=== PATIENT | male | born 1970 | race Caucasian/White ===

== ENCOUNTER 2024-05-20 16:54 | Inpatient (IN) | payer OTHER, SELFPAY ==
[2024-05-20 18:13] VITALS: BMI 22.4
[2024-05-20] MEDS ORDERED: MIDAZOLAM HCL 2 MG/2 ML INJ ONE (18:23)
[2024-05-20] MEDS ORDERED: FENTANYL CITR 100 MCG/2 ML ONE (18:23)
[2024-05-20] MEDS ORDERED: EPHEDRINE SULF 50 MG/ML VIAL ONE (18:24)
[2024-05-20] MEDS ORDERED: propofoL 200 MG/20 ML VIAL IV ONE (18:24)
[2024-05-20] MEDS ORDERED: LIDOCAINE 2% MPF 5 ML VIAL ONE (18:26)
[2024-05-20] MEDS ORDERED: ACETAMINOPHEN 500 MG TAB PO PRN (18:26)
[2024-05-20] MEDS ORDERED: ONDANSETRON 4 MG/2 ML VIAL IV PRN (18:26)
[2024-05-20] MEDS: Ringers Lactate 1,000 ML IV ONE ×2 (18:30→20:35)
[2024-05-20] MEDS: SUCCINYLCHOLINE 20 MG/ML (10 ML) IV ONE (18:30)
[2024-05-20] MEDS: ROCURONIUM 50 MG/5 ML VIAL IV ONE (18:31)
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
[2024-05-20] MEDS ORDERED: ONDANSETRON 4 MG/2 ML VIAL ONE (19:31)
[2024-05-20] MEDS ORDERED: METOCLOPRAMIDE 10 MG/2mL INJ ONE (19:31)
[2024-05-20] MEDS ORDERED: GLYCOPYRROLATE 0.2 MG/ML SYR ONE ×3 (19:34)
[2024-05-20] MEDS ORDERED: NEOSTIGMINE 1 MG/ML -10 ML VIAL ONE (19:34)
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
--- NOTE | 2024-05-20 20:30 | P.BOP ---
Preoperative diagnosis: small bowel obstruction, strangulated umbilical hernia, peritonitis, renal Postoperative diagnosis: gangrenous strangulated small bowel Primary procedure: 1. Emergent exploratory laparotomy, 2.Small bowel resection / anastomosis Secondary procedure: 3. Repair of strangulated umbilical hernia 5cm Estimated blood loss: <50cc Specimen: gangrenous strangulated small bowel Findings: gangrenous strangulated small bowel Anesthesia: General Complications: None Drain(s): Nasogastric, Urinary catheter, VANNA drain Transferred to: Recovery Room Condition: Good
[2024-05-20] MEDS: FENTANYL CITR 100 MCG/2 ML ONE ×2 (21:05→21:30)
--- NOTE | 2024-05-20 21:20 | RAD REPORT ---
EXAM: AP view(s) of the abdomen Abdomen 1 View (KUB) HISTORY: NGT PLACEMENT COMPARISON: None FINDINGS: Limited, single view of the left upper quadrant. The NG tube tip terminates overlying the stomach. Th e proximal side port terminates overlying the distal esophagus. Dilated small bowel bowel present in the left upper quadrant. Other: n/a IMPRESSION: NG tube tip overlies the stomach with proximal side-port at the distal esophagus. Suggest advancing by another 8 cm. THIS REPORT CONTAINS FINDINGS THAT MAY BE CRITICAL TO PATIENT CARE. The findings were communicated to Dr. Womack on 05/20/2024 9:17 PM.
[2024-05-20] MEDS: HYDROMORPHONE HCL 1 MG/ML INJ ONE (21:45)
[2024-05-20] MEDS: PANTOPRAZOLE INJ 80 MG in NA CHLORIDE 0.9% 250 ML IV SCH (23:04)
[2024-05-20] MEDS: HYDROMORPHONE HCL 1 MG/ML INJ IV PRN (23:05)
[2024-05-20 23:34] LABS: Absolute Lymphocytes (CBC) 0.8 K/uL (0.7-4.9); Absolute Monocytes 0.3 K/uL (0.1-1.3); Absolute Neutrophil 3.1 K/uL (1.8-8.0); Basophils % 0.2 % (0-1.3); Eosinophils % 0.1 % (0-4.4); Hematocrit 42.3 % (39.6-49.0); Hemoglobin 14.7 g/dL (13.6-17.9); Lymphocytes % 19.2 % (15.3-44.8); MCH 29.5 pg (27.0-35.0); MCHC 34.9 g/dL (32.0-36.0); MCV 84.6 fL (80-100); MPV 9.5 fL (7.6-11.3); Monocytes % 6.9 % (3.3-12.3); Neutrophils % 73.6 % (41.7-73.7); Nucleated Red Blood Cells % 0.1 % (0-0); Percent Reticulocyte Count 0.88 % (0.4-2.05); Platelets 309 thou/uL (152-406); RBC Red Blood Cell Count 4.99 M/uL (4.33-5.43); Red Cell Distribution Width 14.2 % (12.1-15.2)
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
[2024-05-20 23:49] LABS: Albumin 2.4 g/dL (3.4-5.0); Albumin/Globulin Ratio 0.7 (1.1-1.8); Anion Gap 15.5 mEq/L (5.0-15.0); Bilirubin Total 2.1 mg/dL (0.2-1.0); Globulin 3.6 g/dL (2.3-3.5); Magnesium 2.2 mg/dL (1.6-2.4); Phosphorus 5.5 mg/dL (2.5-4.9); Potassium 3.5 mEq/L (3.5-5.1)
[2024-05-20 23:56] LABS: PT Prothrombin Time 12.2 SECONDS (9.4-12.5); PTT, Activated Partial Thromb 24.1 SECONDS (24.3-36.9); Protime INR 1.16
[2024-05-21] MEDS: PIPER TAZO 3.375 GM in NA CHLORIDE 0.9% 100 ML IV SCH (01:59)
[2024-05-21] MEDS: NA CHLORIDE 0.9% 1,000 ML IV SCH ×2 (01:59→14:43)
[2024-05-21 06:12] LABS: Absolute Lymphocytes (CBC) 0.8 K/uL (0.7-4.9); Absolute Monocytes 1.1 K/uL (0.1-1.3); Absolute Neutrophil 8.2 K/uL (1.8-8.0); Basophils % 0.1 % (0-1.3); Eosinophils % 0.1 % (0-4.4); Hemoglobin 14.2 g/dL (13.6-17.9); Lymphocytes % 7.8 % (15.3-44.8); MCH 29.4 pg (27.0-35.0); MCHC 35.4 g/dL (32.0-36.0); MCV 83.2 fL (80-100); MPV 9.1 fL (7.6-11.3); Monocytes % 10.6 % (3.3-12.3); Neutrophils % 81.4 % (41.7-73.7); Platelets 309 thou/uL (152-406); RBC Red Blood Cell Count 4.81 M/uL (4.33-5.43); Red Cell Distribution Width 13.9 % (12.1-15.2)
[2024-05-21 06:31] LABS: Albumin 2.4 g/dL (3.4-5.0); Albumin/Globulin Ratio 0.7 (1.1-1.8); Anion Gap 13.7 mEq/L (5.0-15.0); Bilirubin Total 2.8 mg/dL (0.2-1.0); Globulin 3.6 g/dL (2.3-3.5); Potassium 3.7 mEq/L (3.5-5.1)
[2024-05-21 06:35] LABS: PT Prothrombin Time 12.2 SECONDS (9.4-12.5); PTT, Activated Partial Thromb 22.9 SECONDS (24.3-36.9); Protime INR 1.16
[2024-05-21] MEDS ORDERED: PIPER TAZO 3.375 GM in NA CHLORIDE 0.9% 100 ML IV SCH ×2 (09:00→18:33)
[2024-05-21] MEDS: PANTOPRAZOLE INJ 80 MG in NA CHLORIDE 0.9% 250 ML IV SCH (09:30)
--- NOTE | 2024-05-21 14:14 | P.PN ---
Subjective Date of Service: 05/21/24 Subjective: No new changes, Improving Review of Systems 10-point ROS is otherwise unremarkable Physical Examination - Vital Signs Temperature: 97.3 F Blood Pressure: 137/83 Pulse: 89 Respirations: 13 Pulse Ox (%): 98 - Physical Exam General: Alert, In no apparent distress, Oriented x3 HEENT: Other (NG tube in place) Respiratory: Clear to auscultation bilaterally, Normal air movement Cardiovascular: Regular rate/rhythm, Normal S1 S2, No murmurs Gastrointestinal: Hypoactive, No rebound, No guarding, Tenderness Musculoskeletal: No clubbing, No swelling, No tenderness Integumentary: No rashes Neurological: Normal speech, Normal tone, Sensation intact, Cranial nerves 3-12 intact Lymphatics: No axilla or inguinal lymphadenopathy - Studies Laboratory Data (last 24 hrs) 05/21/24 05/21/24 05/21/24 05:49 05:49 05:49 WBC 10.00 Hgb 14.2 Hct 40.0 Plt Count 309 PT 12.2 INR 1.16 APTT 22.9 L Sodium 127 L Potassium 3.7 BUN 105 H Creatinine 2.24 H Glucose 114 H Phosphorus Magnesium Total Bilirubin 2.8 H AST 25 ALT 30 Alkaline Phosphatase 76 05/20/24 05/20/24 05/20/24 22:55 22:55 22:55 WBC 4.20 L Hgb 14.7 Hct 42.3 Plt Count 309 PT 12.2 INR 1.16 APTT 24.1 L Sodium 127 L Potassium 3.5 BUN 117 H Creatinine 2.48 H Glucose 133 H Phosphorus 5.5 H Magnesium 2.2 Total Bilirubin 2.1 H AST 21 ALT 32 Alkaline Phosphatase 73 Medications List Reviewed: Yes Assessment & Plan - Problems (Diagnosis) (1) Strangulated umbilical hernia Current Visit: Yes Status: Acute (2) Peritonitis Current Visit: Yes Status: Acute (3) JUAN ANTONIO (acute kidney injury) Current Visit: Yes Status: Acute (4) Lactic acidosis Current Visit: Yes Status: Acute (5) Severe sepsis Current Visit: Yes Status: Acute - Plan Plan: Continue with plan of care as mentioned below: 1. Patient with strangulated umbilical hernia with peritonitis status post small bowel resection with anastomosis; NG tube is in place. Aggressive IV hydration. Continue with IV antibiotics. Cultures are pending. Patient with severe sepsis and clinical symptoms have improved. Labs are improving. Will downgrade to general medical floor. 2. Acute kidney injury; aggressive IV hydration. Monitor renal function closely. Mild improvement. Strict I's and O's. Monitor acidosis 3. Lactic acidosis; continue with aggressive IV hydration and repeat lactic acid monitor daily. 4. GI DVT prophylaxis Discharge Plan: Home Plan to discharge in: Greater than 2 days - Advance Directives Does patient have a Living Will: No Does patient have a Durable POA for Healthcare: No - Code Status/Comfort Care Code Status: Full Code Critical Care: Yes Time Spent Managing PTS Care (In Minutes): 35
--- NOTE | 2024-05-21 17:32 | PN ---
Date of Progress Note: 05/21/2024 Subjective: Status post laparotomy emergently for bowel resection due to gangrenous bowel. Anastomo sis was created at that moment. The patient also has some other medical issues that were addressed a t the same time. He is doing great. He has allergies to aspirin and codeine, but not hydrocodone or Dilaudid. He has not had any reaction or any rash or any allergy reaction to those medications. Objective: Vital Signs: Stable with temperature of 97.3, pulse is between 86 and 89, respiration 13 , and blood pressure 137/83. Chest: Clear. Abdomen: Soft and depressible. Bowel sounds negative. Extremities: Good capillary refill. No calf tenderness. Lab: WBC count is 10, with hemoglobin of 14 and platelets of 309. His creatinine coming down from 2 .84 to 2.2. Lactic acid was initially 4.9, now is 2. Glucose 114. Sodium is still 127. Chloride i s 90. Plan: We going to continue NG tube. He does not want me to touch the NG tube. We are going to adva nce it a little bit, it is bothering him too much, so we are going to put on low intermittent suction . We might remove the NG tube anyway tomorrow. We encouraged ambulation. He wants some water. We are going to give him some sips of water. He understands the importance of not exceeding that. Cont inue the antibiotics. HM/MODL Voice ID: [id number] Report ID: [id number]
[2024-05-21] MEDS: Ringers Lactate 1,000 ML IV ONE ×2 (17:42→18:35)
--- NOTE | 2024-05-21 22:47 | CON ---
Date of Consultation: 05/21/2024 Additional Consulting Physician: Dr. Thornton. Reason For Consultation: Elevated BUN and creatinine, electrolyte imbalance. History Of Present Illness: This is a 54-year-old gentleman with negative past medical history, who was admitted to the hospital with strangulated hernia, went to Surgery, and surgery was done. The pa tyler apparently had abdominal pain, has decreased intake with nausea and vomiting for the last 2 wee ks. The patient is questionable of taking nonsteroid. The patient upon arrival to the hospital foun d to have elevation in BUN and creatinine, creatinine 2.4 with GFR of 30. For that reason, we have b vicente consulted. The patient as I mentioned, possible of taking nonsteroid, no IV contrast. CT in the other hospital did not show any hydronephrosis. The patient is nonoliguric. The patient was starte d on hydration. Past Medical History: Negative. Allergies: TO ASPIRIN, CODEINE. Past Surgical History: Negative. Family History: Positive for hypertension. Social History: Denied alcohol. Denied drugs abuse. Positive for smoking. Review of Systems: Head and Neck: No red eye. No ear pain. GI: Has abdominal pain. Has nausea, vomiting. : No polyuria. No dysuria. No hematuria. APPLICATION PROGRAMMER ANALYST: Not applicable. Respiratory: No shortness of breath. Cardiovascular: No chest pain. Endocrine: No polydipsia. Skin: No rash. Neuro: Has weakness. Musculoskeletal: No joint pain. Physical Examination: General: When I saw the patient, the patient lying in bed with pain. Vital Signs: Blood pressure 144/75, pulse of 91. Chest: Clear to auscultation. Heart: S1, S2. Regular. Abdomen: Tender. No guarding or rebound. Extremities: No edema. Neurologic: Alert. No focality. Laboratory Data: Sodium 127, potassium 3.7, bicarb 27, BUN 105, creatinine 2.2, calcium 7.4. CT neg ative for hydronephrosis. Albumin 2.4, corrected calcium is 8.6. Current Medications: 1.Zosyn. 2.Zofran. 3.Normal saline. Assessment And Plan: 1.Acute kidney injury secondary to prerenal, superimposed with nonsteroid, nonoliguric obstructive u ropathy has been ruled out. I am going to go ahead and bolus the patient with LR. Maintain the john ent on IV fluid and we will follow up the patient. 2.Hyponatremia, depletional. We will continue aggressive hydration. 3.Hypokalemia. We will supplement cautiously. 4.Strangulated hernia. Continue current treatment. 5.Disproportion of BUN and creatinine secondary to severe contraction alkalosis/possible secondary t o the ischemic bowel. We will follow up with the hydration. ABRAHAM/BRAN Voice ID: [id number] Report ID: [id number]
[2024-05-22 05:01] LABS: Absolute Monocytes 0.8 K/uL (0.1-1.3); Absolute Neutrophil 7.3 K/uL (1.8-8.0); Basophils % 0.3 % (0-1.3); Eosinophils % 0.2 % (0-4.4); Hematocrit 36.5 % (39.6-49.0); Hemoglobin 12.3 g/dL (13.6-17.9); Lymphocytes % 10.7 % (15.3-44.8); MCH 28.7 pg (27.0-35.0); MCHC 33.6 g/dL (32.0-36.0); MCV 85.2 fL (80-100); MPV 9.1 fL (7.6-11.3); Monocytes % 8.9 % (3.3-12.3); Neutrophils % 79.9 % (41.7-73.7); Nucleated Red Blood Cells % 0.1 % (0-0); Platelets 252 thou/uL (152-406); RBC Red Blood Cell Count 4.29 M/uL (4.33-5.43); Red Cell Distribution Width 14.4 % (12.1-15.2)
[2024-05-22 05:23] LABS: Albumin 2.2 g/dL (3.4-5.0); Albumin/Globulin Ratio 0.6 (1.1-1.8); Anion Gap 7.5 mEq/L (5.0-15.0); Bilirubin Total 1.2 mg/dL (0.2-1.0); Globulin 3.6 g/dL (2.3-3.5); Magnesium 3.1 mg/dL (1.6-2.4); Potassium 3.5 mEq/L (3.5-5.1); Protein, Total 5.8 g/dL (6.4-8.2)
[2024-05-22 05:29] LABS: Band Neutrophils 37 % (0-1); Blood Morphology Comment NOT SEEN (NOT SEEN); Differential Total Cells Count 100; Lymphocytes 10 % (15-42); Monocytes 8 % (0-10); Platelet Estimate ADEQ; Reactive Lymphocytes 1 %; Segmented Neutrophils 44 % (40-80)
[2024-05-22] MEDS: D5 0.45 NS 1,000 ML IV SCH (10:34)
[2024-05-22] MEDS: KCL 20 MEQ/100 mL IVPB 20 MEQ/100 ML BAG IV SCH (10:34)
[2024-05-22] MEDS: FUROSEMIDE 40 MG/4 ML VIAL IV ONE (15:14)
[2024-05-22] MEDS: NA CHLORIDE 0.9% 1,000 ML IV ONE (15:14)
[2024-05-22] MEDS: ENOXAPARIN 40 MG/0.4 ML SQ SCH (16:38)
--- NOTE | 2024-05-22 17:20 | PN ---
Date of Progress Note: 05/22/2024 Diagnosis: Pranay Newsome is status post bowel resection emergently for strangulated intestines. Subjective: The patient is doing well. Not passing any flatus yet. NG tube is minimal. VANNA is mini mal. Objective: Chest: Clear. Abdomen: Soft and depressible. Bowel sounds negative. Extremities: Good capillary refill. Data: Blood work review with WBC count of 9, hemoglobin of 12.3, and platelets of 252. His creatini ne came down to 0.9, glucose of 101, BUN is 44, and potassium 3.5. Assessment: A 54-year-old patient status post strangulated intestine, status post bowel resection an d anastomosis. The patient is doing well. He is going to be transferred to the floor tomorrow. We may clamp the NG tube and discharge on clear liquid diet if clinically he continues improving. HM/MODL Voice ID: [id number] Report ID: [id number]
[2024-05-23 06:21] LABS: Absolute Eosinophils 0.1 K/uL (0-0.5); Absolute Lymphocytes (CBC) 1.2 K/uL (0.7-4.9); Absolute Monocytes 1.2 K/uL (0.1-1.3); Absolute Neutrophil 10.5 K/uL (1.8-8.0); Basophils % 0.2 % (0-1.3); Eosinophils % 0.6 % (0-4.4); Hematocrit 33.5 % (39.6-49.0); Hemoglobin 11.2 g/dL (13.6-17.9); Lymphocytes % 9.4 % (15.3-44.8); MCHC 33.5 g/dL (32.0-36.0); MCV 86.4 fL (80-100); MPV 9.3 fL (7.6-11.3); Monocytes % 9.5 % (3.3-12.3); Neutrophils % 80.3 % (41.7-73.7); Platelets 267 thou/uL (152-406); RBC Red Blood Cell Count 3.87 M/uL (4.33-5.43); Red Cell Distribution Width 14.5 % (12.1-15.2)
[2024-05-23 06:52] LABS: Magnesium 2.6 mg/dL (1.6-2.4)
[2024-05-23] MEDS: POTASSIUM 25 MEQ EFFERV TAB PO ONE (07:49)
[2024-05-23] MEDS: KCL 20 MEQ/100 mL IVPB 20 MEQ/100 ML BAG IV SCH (09:00)
[2024-05-23 11:14] LABS: Specific Gravity 1.024 (1.005-1.030); Sqamous Epithelial <5 /HPF (None Seen); Urine Bacteria None Seen /HPF (<20); Urine Bilirubin NEGATIVE (Negative); Urine Blood 1+ (Negative); Urine Clarity Turbid (Clear); Urine Color Yellow (Yellow); Urine Culture Reflex Order NOT NEEDED; Urine Glucose TRACE (Negative); Urine Ketones NEGATIVE (Negative); Urine Microscopic Reflex YN ORDER UMIC; Urine Mucus Slight /HPF (None Seen); Urine Nitrite NEGATIVE (Negative); Urine Protein 1+ (Negative); Urine RBC 21-50 /HPF (None Seen); Urine Urobilinogen Normal (Normal); Urine WBC <5 /HPF (<5)
[2024-05-23] MEDS ORDERED: SODIUM CHLORIDE 0.9% 10ML INJ IV PRN (12:51)
[2024-05-23] MEDS ORDERED: PANTOPRAZOLE INJ 80 MG in NA CHLORIDE 0.9% 250 ML IV SCH (13:30)
--- NOTE | 2024-05-23 19:49 | PN ---
Date of Progress Note: 05/23/2024 Reason For Service: Status post bowel resection and anastomosis, exploratory laparotomy. Subjective: The patient is doing well. No complaint. No nausea. No vomiting. Passing flatus. NG tube is minimal. Objective: Chest: Clear. Abdomen: Soft and depressible. Packing removed. The area was not repacked anymore. We put a gauze over the area. This is a midline incision. Extremities: Good capillary refill. Blood Work: Blood work shows WBC count of 13.1 with hemoglobin 11.2 and platelets of 267. Sodium is 141, creatinine is 0.88. Plan: We are going to discontinue the NG tube. Ambulation, dry gauze p.r.n. to the abdomen and we a re going to start with clears. YESENIA/MODL Voice ID: [id number] Report ID: [id number]
[2024-05-23] MEDS: THIAMINE 200 MG/2 ML INJ IVP ONE (23:23)
[2024-05-23] MEDS: D5W 1,000 ML IV SCH (23:23)
--- NOTE | 2024-05-24 04:19 | PN ---
Date of Progress Note: 05/23/2024 Chief Complaint: Elevated BUN and creatinine, electrolyte imbalance. Subjective: The patient is a 54-year-old man with negative past medical history. He denies history of diabetes. Denies history of hypertension. He came to the hospital because of abdominal pain and was evaluated by Surgery. He had a strangulated hernia and schedule was done for strangulated hernia . The patient denies complaints. The patient on arrival to the hospital was found to have elevated BUN and creatinine. BUN was 36, creatinine 2.4, GFR of 30. Nephrology consultation is requested for acute kidney injury. CT scan done in other hospital did not show hydronephrosis. The patient has n onoliguric urine output. He was started on IV fluids for acute kidney injury. Review of Systems: Cannot provide review of systems. Denies pain. Physical Examination: Lungs: Clear to auscultation bilaterally. Heart: S1, S2. Abdomen: Soft. Extremities: No edema. Impression And Plan: 1.Acute kidney injury secondary to prerenal azotemia, superimposed with nonsteroidal anti-inflammato ry medication. The patient has nonoliguric urine output. Obstructive uropathy was ruled out. Shadi nue IV fluids for hydration. 2.Hyponatremia. The patient's fluids were adjusted to prevent over-correction and to adjust IV flui ds for gradual correction of hyponatremia. 3.Hypokalemia. Supplementation was started. Monitor renal panel. 4.Elevated high BUN/creatinine ratio secondary to severe acute kidney injury. BUN is 105 on arrival and creatinine 2.2. The patient is on IV fluids and plan is to evaluate renal function. If renal f unction does not improve, the patient may require dialysis. 5.Severe contraction alkalosis, possible due to hypovolemia. Continue hydration. EB/MODL Voice ID: [id number] Report ID: [id number]
[2024-05-24] MEDS: CEFEPIME 2 GM in NA CHLORIDE 0.9% 100 ML IV SCH (05:09)
[2024-05-24 06:22] LABS: Albumin 2.1 g/dL (3.4-5.0); Albumin/Globulin Ratio 0.5 (1.1-1.8); Anion Gap 7.5 mEq/L (5.0-15.0); Bilirubin Total 0.6 mg/dL (0.2-1.0); Globulin 3.9 g/dL (2.3-3.5); Magnesium 2.3 mg/dL (1.6-2.4); Phosphorus 1.6 mg/dL (2.5-4.9); Potassium 3.5 mEq/L (3.5-5.1)
[2024-05-24] MEDS: THIAMINE 200 MG/2 ML INJ IVP SCH (09:33)
[2024-05-24] MEDS: PANTOPRAZOLE 40 MG INJ IVP SCH (09:33)
--- NOTE | 2024-05-24 12:46 | PN ---
Date of Progress Note: 05/24/2024 Reason For Service: Status post bowel resection for strangulated bowel. Subjective: The patient is doing well. No complaint. Passing flatus, having bowel movement. Still liquid diet. No shortness of breath. No chest pain. No fever. Objective: Chest: Clear. Abdomen: Soft and depressible. Intact surgical site. Extremities: Good capillary refill. Plan: Advance diet. We are going to advance to full liquid diet and advance to soft diet as tolerat ed whenever he can tolerate diet. If clinically he continues improving, then he may be discharged ho az. His renal function has seen some improvement on it. HM/MODL Voice ID: [id number] Report ID: [id number]
[2024-05-24 18:13] LABS: Absolute Basophils 0.1 K/uL (0-0.5); Absolute Eosinophils 0.1 K/uL (0-0.5); Absolute Lymphocytes (CBC) 3.1 K/uL (0.7-4.9); Absolute Monocytes 1.2 K/uL (0.1-1.3); Absolute Neutrophil 8.4 K/uL (1.8-8.0); Basophils % 0.5 % (0-1.3); Hematocrit 35.7 % (39.6-49.0); Hemoglobin 11.9 g/dL (13.6-17.9); Lymphocytes % 23.9 % (15.3-44.8); MCHC 33.2 g/dL (32.0-36.0); MCV 87.3 fL (80-100); Monocytes % 9.3 % (3.3-12.3); Neutrophils % 65.3 % (41.7-73.7); Nucleated Red Blood Cells % 0.1 % (0-0); Platelets 321 thou/uL (152-406); RBC Red Blood Cell Count 4.09 M/uL (4.33-5.43)
[2024-05-24 20:34] LABS: Differential Total Cells Count 100; Lymphocytes 34 % (15-42); Segmented Neutrophils 46 % (40-80)
[2024-05-24 20:35] LABS: Blood Morphology Comment NOT SEEN (NOT SEEN); Platelet Estimate ADEQ
[2024-05-24 20:36] LABS: Monocytes 20 % (0-10)
--- NOTE | 2024-05-25 00:14 | PN ---
Date of Progress Note: 05/24/2024 Chief Complaint: Acute kidney injury. History Of Present Illness: The patient is a 54-year-old with negative past medical history. He den ies history of diabetes, denies hypertension. He came to the hospital because of abdominal pain and was evaluated by Surgery. He has strangulated hernia and was scheduled to have a surgery. Underwent surgery during this admission. The patient was found to have elevated BUN of 36 and creatinine of 2 .4. Nephrology consultation was requested for acute kidney injury. CT scan was done at the hospital and did not show hydronephrosis. Patient responded to IV fluids. He has nonoliguric urine output. Review of Systems: Denies chest pain, palpitation. Physical Examination: Lungs: Clear to auscultation bilaterally. Heart: S1, S2. Abdomen: Soft. Extremities: No edema. Impression And Plan: 1.Acute kidney injury secondary to prerenal azotemia superimposed with nonsteroidal anti-inflammator y medication. Patient has nonoliguric urine output and obstructive uropathy was ruled out. Continue IV fluids as needed. The patient tolerated p.o. intake. 2.Hyponatremia. The patient's fluids were adjusted to prevent overcorrection and IV fluids were adj usted for gradual correction hyponatremia. 3.Hypokalemia. Supplementation was started. Monitor renal panel. 4.Elevated BUN creatinine ratio secondary to severe acute kidney injury. BUN was 105, creatinine 2. 2. The patient is on IV fluids. Continue to monitor. 5.Severe contraction alkalosis due to hypovolemia. Continue hydration. EB/MODL Voice ID: [id number] Report ID: [id number]
[2024-05-25] MEDS: D5W 1,000 ML IV SCH (01:05)
[2024-05-25 06:19] LABS: Absolute Basophils 0.1 K/uL (0-0.5); Absolute Eosinophils 0.2 K/uL (0-0.5); Absolute Lymphocytes (CBC) 2.6 K/uL (0.7-4.9); Absolute Monocytes 1.6 K/uL (0.1-1.3); Absolute Neutrophil 10.1 K/uL (1.8-8.0); Basophils % 0.5 % (0-1.3); Eosinophils % 1.5 % (0-4.4); Hematocrit 35.5 % (39.6-49.0); Hemoglobin 11.9 g/dL (13.6-17.9); Lymphocytes % 17.7 % (15.3-44.8); MCH 28.5 pg (27.0-35.0); MCHC 33.5 g/dL (32.0-36.0); MPV 9.4 fL (7.6-11.3); Monocytes % 11.2 % (3.3-12.3); Neutrophils % 69.1 % (41.7-73.7); Platelets 329 thou/uL (152-406); RBC Red Blood Cell Count 4.18 M/uL (4.33-5.43); Red Cell Distribution Width 14.8 % (12.1-15.2)
[2024-05-25 06:36] LABS: Albumin 1.8 g/dL (3.4-5.0); Albumin/Globulin Ratio 0.5 (1.1-1.8); Anion Gap 9.2 mEq/L (5.0-15.0); Bilirubin Total 0.6 mg/dL (0.2-1.0); Globulin 3.7 g/dL (2.3-3.5); Magnesium 1.8 mg/dL (1.6-2.4); Phosphorus 2.3 mg/dL (2.5-4.9); Potassium 3.2 mEq/L (3.5-5.1); Protein, Total 5.5 g/dL (6.4-8.2)
[2024-05-25] MEDS: POTASSIUM CL SA 10 MEQ TAB PO ONE (09:00)
[2024-05-25] MEDS: POTASS/SODIUM PHOSPHATE 1 PKT POWD.PACK PO SCH (09:55)
[2024-05-25] MEDS: MAGNESIUM SULFATE 1 gm IVPB 1 GM/100 ML BAG IV ONE (09:56)
[2024-05-25] MEDS: FUROSEMIDE 20 MG/ 2ML VIAL IV ONE (13:52)
[2024-05-25] MEDS: ALBUMIN HUMAN 25% 100 ML IV ONE (13:52)
[2024-05-25] MEDS: ENSURE COMPACT 118 ML LIQUID PO SCH (16:30)
--- NOTE | 2024-05-25 20:50 | PN ---
Date of Progress Note: 05/25/2024 Chief Complaint: Acute kidney injury. History Of Present Illness: The patient is a 54-year-old man with negative past medical history. He denies history of diabetes, denies hypertension. Denies previous history of prostate problems, kidney stones, and urinary tract infection. He came to the hospital because of abdominal pain and was evaluated by Surgery. He was found to have strangulated hernia and was scheduled to have surgery. Underwent surgery during this admission. He was found to have acute kidney injury. His BUN was 36, creatinine 2.4. Nephrology consultation was requested for acute kidney injury. CT scan was done at the hospital and it did not show obstructive uropathy. The patient responded to IV fluids. IV fluids were adjusted to control hyponatremia and patient is currently off IV fluids. He received 1 dose of Lasix for mild fluid overload. He denies PND, orthopnea. Physical Examination: Lungs: Clear to auscultation bilaterally. Heart: S1, S2. Abdomen: Soft. Extremities: No edema. Impression And Plan: 1. Acute kidney injury secondary to prerenal azotemia, nonoliguric acute tubular necrosis, superimposed with nonsteroidal anti-inflammatory medication. We will continue p.o. hydration. He completed IV fluids. He received IV Lasix for mild volume overload. 2. Hyponatremia. IV fluids were adjusted to prevent overcorrection and patient responded to current regimen. 3. Hypokalemia. Supplementation was added. Monitor renal panel. Add magnesium and phosphorus. 4. Elevated BUN and creatinine ratio secondary to acute kidney injury. BUN was 105, creatinine 2.2. The patient responded to IV fluids. 5. Severe contraction alkalosis due to hypovolemia. Continue p.o. hydration. Electrolytes stabilized and renal function has improved in response to IV fluids. The patient will continue p.o. hydration. EB/MODL Voice ID: [id number] Report ID: [id number] DAVONTE
--- NOTE | 2024-05-25 21:47 | PN ---
Date of Progress Note: 05/25/2024 Subjective: Status post strangulated intestines. bowel was resected and primary anastomosis to an emergent laparotomy. The patient is doing better. He is more active, more talkative, tolerating a full liquid diet. Objective: Chest: Clear. Abdomen: Soft and depressible. Intact surgical site. Bowel sounds positive. Extremities: Good capillary refill. No calf tenderness. Laboratory Data: WBC count is climbing up a little bit. He is on antibiotics. We did not see at this moment any specific area. VANNA from inside the abdomen l ooks clear. Plan: We are going to do WBC tomorrow, ambulation, incentive spirometry. We are going to advance di et since he is hungry and is tolerating the diet, passing flatus. HM/MODL Voice ID: [id number] Report ID: [id number]
[2024-05-26] MEDS: NA CHLORIDE 0.9% 1,000 ML IV SCH (05:47)
[2024-05-26 06:45] LABS: Absolute Basophils 0.1 K/uL (0-0.5); Absolute Eosinophils 0.2 K/uL (0-0.5); Absolute Lymphocytes (CBC) 2.7 K/uL (0.7-4.9); Absolute Monocytes 1.9 K/uL (0.1-1.3); Absolute Neutrophil 11.3 K/uL (1.8-8.0); Basophils % 0.5 % (0-1.3); Eosinophils % 1.2 % (0-4.4); Hematocrit 34.9 % (39.6-49.0); Hemoglobin 11.8 g/dL (13.6-17.9); Lymphocytes % 16.8 % (15.3-44.8); MCHC 33.8 g/dL (32.0-36.0); MCV 85.9 fL (80-100); MPV 8.8 fL (7.6-11.3); Monocytes % 11.8 % (3.3-12.3); Neutrophils % 69.7 % (41.7-73.7); Nucleated Red Blood Cells % 0.1 % (0-0); Platelets 363 thou/uL (152-406); RBC Red Blood Cell Count 4.06 M/uL (4.33-5.43); Red Cell Distribution Width 14.9 % (12.1-15.2)
[2024-05-26 07:01] LABS: Albumin 2.2 g/dL (3.4-5.0); Albumin/Globulin Ratio 0.6 (1.1-1.8); Anion Gap 6.5 mEq/L (5.0-15.0); Bilirubin Total 0.8 mg/dL (0.2-1.0); Globulin 3.4 g/dL (2.3-3.5); Phosphorus 3.5 mg/dL (2.5-4.9); Potassium 3.5 mEq/L (3.5-5.1); Protein, Total 5.6 g/dL (6.4-8.2)
[2024-05-26 08:17] LABS: Blood Morphology Comment NOT SEEN (NOT SEEN); Differential Total Cells Count 100; Platelet Estimate ADEQ; Platelets Clumped NOTED; Platelets, Giant RARE
[2024-05-26 08:18] LABS: Atypical Lymphocytes 1 %; Eosinophils 1 % (0-3); Lymphocytes 20 % (15-42); Metamyelocytes 3 % (0-0); Monocytes 9 % (0-10); Segmented Neutrophils 63 % (40-80); White Blood Cell Scan OK (OK)
--- NOTE | 2024-05-26 09:36 | P.PN ---
Date of Service: 05/25/24 Subjective Patient clinically doing better. He is tolerating his diet. He has had a bowel movement. He denies any new complaints. We have stopped his IV fluids and we have gently diuresed him. His white blood cell count has gone up a little bit. Clinically, he does look like he is doing much better. He is wanting to go home but at this time since his white count is at work and I will hold his discharge and reassess it in the morning. Possible DC in a.m. Physical Examination - Vital Signs Reviewed - Physical Exam General: Alert, In no apparent distress, Oriented x3 HEENT: WNL Respiratory: Clear to auscultation bilaterally, Normal air movement Cardiovascular: Regular rate/rhythm, Normal S1 S2, No murmurs Gastrointestinal: Hypoactive, No rebound, No guarding, appropriately tender; no rebound or guarding Musculoskeletal: No clubbing, No swelling, No tenderness Integumentary: No rashes Neurological: No focal deficits Assessment & Plan - Problems (Diagnosis) (1) Strangulated umbilical hernia Current Visit: Yes Status: Acute (2) Peritonitis Current Visit: Yes Status: Acute (3) JUAN ANTONIO (acute kidney injury) Current Visit: Yes Status: Acute (4) Lactic acidosis Current Visit: Yes Status: Acute (5) Severe sepsis Current Visit: Yes Status: Acute - Plan Plan: Continue with plan of care as mentioned below: 1. Patient with strangulated umbilical hernia with peritonitis status post small bowel resection with anastomosis; NG tube has been removed and patient is tolerating diet. Hep-Lock IV and gently diuresed him as he was feeling fluid overloaded. Continue with IV antibiotics. Cultures have been reviewed. Patient is clinically doing well. If he continues to improve and his labs are stable then he possibly could go home in a.m. 2. Acute kidney injury; renal function has improved almost to baseline. Continue with monitoring I's and O's and encouraging oral intake. 3. Lactic acidosis; normalized. Continue monitoring lactic acid 4. GI DVT prophylaxis Discharge Plan: Home Plan to discharge in: Greater than 2 days - Advance Directives Does patient have a Living Will: No Does patient have a Durable POA for Healthcare: No - Code Status/Comfort Care Code Status: Full Code Critical Care: Yes Time Spent Managing PTS Care (In Minutes): 35
--- NOTE | 2024-05-26 09:38 | P.PN ---
Date of Service: 05/24/24 Subjective Patient's continues to do well. Advancing diet slowly. Doing much better. Physical Examination - Vital Signs Reviewed - Physical Exam General: Alert, In no apparent distress, Oriented x3 HEENT: WNL Respiratory: Clear to auscultation bilaterally, Normal air movement Cardiovascular: Regular rate/rhythm, Normal S1 S2, No murmurs Gastrointestinal: Hypoactive, No rebound, No guarding, appropriately tender; no rebound or guarding Musculoskeletal: No clubbing, No swelling, No tenderness Integumentary: No rashes Neurological: No focal deficits Assessment & Plan - Problems (Diagnosis) (1) Strangulated umbilical hernia Current Visit: Yes Status: Acute (2) Peritonitis Current Visit: Yes Status: Acute (3) JUAN ANTONIO (acute kidney injury) Current Visit: Yes Status: Acute (4) Lactic acidosis Current Visit: Yes Status: Acute (5) Severe sepsis Current Visit: Yes Status: Acute - Plan Plan: Continue with plan of care as mentioned below: 1. Patient with strangulated umbilical hernia with peritonitis status post small bowel resection with anastomosis; NG tube has been removed on Sunday and patient is tolerating diet-advancing as tolerated. Hep-Lock IV and gently diuresed him as he was feeling fluid overloaded. Continue with IV antibiotics. Cultures have been reviewed. Patient is clinically doing well. If he continues to improve and his labs are stable then he possibly could go home in a.m. 2. Acute kidney injury; renal function has improved almost to baseline. Continue with monitoring I's and O's and encouraging oral intake. 3. Lactic acidosis; normalized. Continue monitoring lactic acid 4. GI DVT prophylaxis Discharge Plan: Home Plan to discharge in: Greater than 2 days - Advance Directives Does patient have a Living Will: No Does patient have a Durable POA for Healthcare: No - Code Status/Comfort Care Code Status: Full Code Critical Care: Yes Time Spent Managing PTS Care (In Minutes): 35
--- NOTE | 2024-05-26 09:39 | P.PN ---
Date of Service: 05/23/24 Subjective Nasogastric tube was removed this evening. Patient is moving his bowels and patient is tolerating his liquids. Patient states he feels so much better. Physical Examination - Vital Signs Reviewed - Physical Exam General: Alert, In no apparent distress, Oriented x3 HEENT: WNL Respiratory: Clear to auscultation bilaterally, Normal air movement Cardiovascular: Regular rate/rhythm, Normal S1 S2, No murmurs Gastrointestinal: Hypoactive, No rebound, No guarding, appropriately tender; no rebound or guarding Musculoskeletal: No clubbing, No swelling, No tenderness Integumentary: No rashes Neurological: No focal deficits Assessment & Plan - Problems (Diagnosis) (1) Strangulated umbilical hernia Current Visit: Yes Status: Acute (2) Peritonitis Current Visit: Yes Status: Acute (3) JUAN ANTONIO (acute kidney injury) Current Visit: Yes Status: Acute (4) Lactic acidosis Current Visit: Yes Status: Acute (5) Severe sepsis Current Visit: Yes Status: Acute - Plan Plan: Continue with plan of care as mentioned below: 1. Patient with strangulated umbilical hernia with peritonitis status post small bowel resection with anastomosis; NG tube has been removed this morning and patient is tolerating diet-advancing as tolerated. Hep-Lock IV. Continue with IV antibiotics. Cultures have been reviewed. Patient is clinically doing well. If he continues to improve and his labs are stable then he possibly could go home in a.m. 2. Acute kidney injury; renal function has improved almost to baseline. Continue with monitoring I's and O's and encouraging oral intake. 3. Lactic acidosis; normalized. Continue monitoring lactic acid 4. GI DVT prophylaxis Discharge Plan: Home Plan to discharge in: Greater than 2 days - Advance Directives Does patient have a Living Will: No Does patient have a Durable POA for Healthcare: No - Code Status/Comfort Care Code Status: Full Code Critical Care: Yes Time Spent Managing PTS Care (In Minutes): 35
--- NOTE | 2024-05-26 09:41 | P.PN ---
Date of Service: 05/22/24 Subjective Patient NG tube remains in place. Patient is having some bowel sounds. Can probably clamp in the morning. Encouraging activity. The more he moves around the less likely is to have obstruction. Physical Examination - Vital Signs Reviewed - Physical Exam General: Alert, In no apparent distress, Oriented x3; NG tube in place HEENT: WNL Respiratory: Clear to auscultation bilaterally, Normal air movement Cardiovascular: Regular rate/rhythm, Normal S1 S2, No murmurs Gastrointestinal: Hypoactive, No rebound, No guarding, appropriately tender; no rebound or guarding Musculoskeletal: No clubbing, No swelling, No tenderness Integumentary: No rashes Neurological: No focal deficits Assessment & Plan - Problems (Diagnosis) (1) Strangulated umbilical hernia Current Visit: Yes Status: Acute (2) Peritonitis Current Visit: Yes Status: Acute (3) JUAN ANTONIO (acute kidney injury) Current Visit: Yes Status: Acute (4) Lactic acidosis Current Visit: Yes Status: Acute (5) Severe sepsis Current Visit: Yes Status: Acute - Plan Plan: Continue with plan of care as mentioned below: 1. Patient with strangulated umbilical hernia with peritonitis status post small bowel resection with anastomosis; NG tube in place and patient will start diet. Continue with IV hydration along with plan to continue with IV antibiotics. Cultures have been reviewed. 2. Acute kidney injury; renal function has improved. Continue with monitoring I's and O's and encouraging oral intake. Continue with aggressive IV hydration 3. Lactic acidosis; normalized. Continue monitoring lactic acid. Much better. 4. GI DVT prophylaxis Discharge Plan: Home Plan to discharge in: Greater than 2 days - Advance Directives Does patient have a Living Will: No Does patient have a Durable POA for Healthcare: No - Code Status/Comfort Care Code Status: Full Code Critical Care: Yes Time Spent Managing PTS Care (In Minutes): 35
[2024-05-26] MEDS: POTASSIUM CL SA 10 MEQ TAB PO ONE (09:47)
[2024-05-26] MEDS: HYDROCODONE/APAP 5/325 MG TAB PO PRN (10:12)
--- NOTE | 2024-05-26 11:14 | P.PN ---
Date of Service: 05/26/24 Subjective Patient doing much better; however WBC ct increased; ID wanted to add Vancomycin; DC held Physical Examination - Vital Signs Reviewed - Physical Exam General: Alert, In no apparent distress, Oriented x3; NG tube in place HEENT: WNL Respiratory: Clear to auscultation bilaterally, Normal air movement Cardiovascular: Regular rate/rhythm, Normal S1 S2, No murmurs Gastrointestinal: Hypoactive, No rebound, No guarding, appropriately tender; no rebound or guarding Musculoskeletal: No clubbing, No swelling, No tenderness Integumentary: No rashes Neurological: No focal deficits Assessment & Plan - Problems (Diagnosis) (1) Strangulated umbilical hernia Current Visit: Yes Status: Acute (2) Peritonitis Current Visit: Yes Status: Acute (3) JUAN ANTONIO (acute kidney injury) Current Visit: Yes Status: Acute (4) Lactic acidosis Current Visit: Yes Status: Acute (5) Severe sepsis Current Visit: Yes Status: Acute - Plan Plan: Continue with plan of care as mentioned below: 1. Patient with strangulated umbilical hernia with peritonitis status post small bowel resection with anastomosis; Tolerating diet and ambulating and moving his bowels; afebrile. Vancomycin added for WBC ct increase; could be reactive. 2. Acute kidney injury; renal function has improved. Continue with monitoring I's and O's and encouraging oral intake. Continue with aggressive IV hydration 3. Lactic acidosis; normalized. Continue monitoring lactic acid. Much better. 4. GI DVT prophylaxis Discharge Plan: Home Plan to discharge in: 24-48hrs - Advance Directives Does patient have a Living Will: No Does patient have a Durable POA for Healthcare: No - Code Status/Comfort Care Code Status: Full Code Critical Care: Yes Time Spent Managing PTS Care (In Minutes): 25
[2024-05-26 12:17] LABS: Absolute Basophils 0.2 K/uL (0-0.5); Absolute Eosinophils 0.2 K/uL (0-0.5); Absolute Lymphocytes (CBC) 2.9 K/uL (0.7-4.9); Absolute Neutrophil 12.9 K/uL (1.8-8.0); Basophils % 1.3 % (0-1.3); Hematocrit 36.6 % (39.6-49.0); Hemoglobin 12.3 g/dL (13.6-17.9); Lymphocytes % 15.8 % (15.3-44.8); MCH 28.6 pg (27.0-35.0); MCHC 33.5 g/dL (32.0-36.0); MCV 85.4 fL (80-100); MPV 8.8 fL (7.6-11.3); Neutrophils % 70.9 % (41.7-73.7); Nucleated Red Blood Cells % 0.1 % (0-0); Platelets 369 thou/uL (152-406); RBC Red Blood Cell Count 4.29 M/uL (4.33-5.43)
[2024-05-26] MEDS: VANCOMYCIN 1.5 GM in NA CHLORIDE 0.9% 500 ML IVPB SCH (12:24)
--- NOTE | 2024-05-26 14:10 | RAD REPORT ---
EXAMINATION: CT ABDOMEN AND PELVIS WITHOUT CONTRAST CLINICAL INDICATION: Male, 54 years old.f/u bowel resection, SBO TECHNIQUE: CT abdomen and pelvis was performed, without IV contrast, as per department protocol. Axia l, sagittal and coronal reconstructions were obtained. One or more of the following dose reduction techniques were used: Automated exposure control, adjustment of the mA and/or kV according to the pat ient size, and/or iterative reconstruction. Unless otherwise specified, incidental findings do not require dedicated imaging follow-up. [id number]. IV CONTRAST: Not administered. COMPARISON: None FINDINGS: The lack of intravenous contrast limits the sensitivity of this exam for evaluation of solid visceral organs, vascular structures, and retroperitoneum. LOWER CHEST: Small right pleural effusion with right lower lobe consolidation. Trace left pleural eff usion.Small pericardial effusion. Moderate circumferential thickening of the distal esophagus which could reflect esophagitis. Endoscopy could better evaluate. UPPER GI: No significant abnormality. LIVER: Hepatic steatosis, but otherwise unremarkable. GALLBLADDER/BILE DUCTS: No biliary ductal dilatation.? PANCREAS: No mass, ductal dilation, or susan-pancreatic fluid. SPLEEN: Unremarkable. ADRENALS: No adrenal masses. KIDNEYS AND URETERS: No hydronephrosis.Within the limitations of a noncontrast CT, no suspicious rusty l lesions. ABDOMINAL AORTA AND OTHER VESSELS: Mild atherosclerotic changes. PERITONEUM: Surgical drain terminates in the left lower quadrant. LYMPH NODES: No pathologic lymphadenopathy. ABDOMINAL WALL: Unremarkable SMALL BOWEL/COLON: Colon containing left inguinal hernia.There is contrast that reaches the proximal colon. Anastomosis in the right hemiabdomen. The proximal small bowel is mildly dilated. URINARY BLADDER: Circumferential bladder wall thickening with gas. This may be from instrumentation. REPRODUCTIVE ORGANS: No pathologic process. MUSCULOSKELETAL: Multilevel degenerative changes in the spine. No acute fracture. ADDITIONAL FINDINGS: None. IMPRESSION: Postoperative changes from partial small bowel resection. Mildly dilated small bowel proximal to the anastomosis is probably related to a postoperative ileus. Contrast does traverse the anastomosis and is seen within the ascending colon. No abscess or leak identified. Mild right lower lobe consolidation with small right pleural effusion probably represents some atelec tasis.
--- NOTE | 2024-05-26 16:17 | CON ---
History Of Present Illness: The patient is being consulted for necrotic and strangulated bowel, stat us post bowel resection. This is a 54-year-old male, who was initially presented on May 20 with incarcerated umbilical hernia. The patient had peritoneal signs and has bruising around the umbilica l area. He was transferred from outside hospital, was unable to transfer to another facility until b owel resection for the necrotic bowel by surgical team, continued to have some abdominal discomfort a nd leukocytosis, currently being treated with IV Zosyn and cefepime which was started today for bacte remia secondary to gram-positive rods. Past Medical History: Noncontributory. Social History: Noncontributory. Family History: Noncontributory. Medications: Cefepime and Zosyn. See MAR for other medications. Allergies: ASPIRIN AND CODEINE. Review of Systems: A 10-point review was performed. Physical Examination: General: This is a 54-year-old male, lying in bed, not in any acute cardiopulmonary distress. Vital signs: Temperature 98, pulse 58, respirations 18, blood pressure 118/75. HEENT: Unremarkable. Neck: Supple. Lungs: Basal crackles. Heart: S1, S2 regular. Abdomen: Surgical incisions noted. Extremities: No edema. Laboratory Data: Shows WBC 16.3, elevated from 9.1; hemoglobin 11.8; platelets are 363. Chemistry s hows BUN of 12, creatinine 0.7. Albumin level is 2.2. Absolute neutrophil is 11.3. Cultures are gr owing from May 23 gram-positive rods. Assessment And Plan: Ischemic bowel syndrome, status post herniated umbilical hernia strangulation, status post bowel resection, leukocytosis. We will recommend to add vancomycin, bacteremia secondary to gram-positive rods and continue Zosyn. Discontinue cefepime. Leukocytosis. Moderate protein-ca milton malnourishment. Hematuria. Continue current treatment. We will follow the patient closely an d monitor signs of infection with WBC and fever trend. Thank you for consult. NF/MODL Voice ID: [id number] Report ID: [id number]
--- NOTE | 2024-05-26 20:22 | PN ---
Date of Progress Note: 05/26/2024 Reason For Service: Status post strangulated bowel, status post bowel resection, necrotic bowel. Subjective: The patient is doing better. He feels better. He is tolerating diet, ambulating, but w e noticed white blood cell count elevated, so we consulted Infectious Disease. Objective: Chest: Clear. Abdomen: Soft and depressible. Intact surgical sites. No infection in that area. Bowel sounds pos itive. Extremities: No calf tenderness. Plan: We consulted Infectious Disease who just changed the antibiotics for better coverage of gram-p ositive. CAT scan was done due to the increased WBC count to make sure there are no fluid collection s. There is no abscess or leak identified. There is mild right lower lobe consolidation and a small right pleural effusion and postoperative changes. Continue conservative treatment from the surgical standpoint. Antibiotics per ID and medical treatme nt by medical service. Ambulation, incentive spirometry advised. He has no dysuria, hematuria, toma tochezia, melena, or nausea. HM/MODL Voice ID: [id number] Report ID: [id number]
[2024-05-26] MEDS: ENSURE HIGH PROTEIN 237 ML CAN PO SCH (21:00)
--- NOTE | 2024-05-27 03:28 | PN ---
Date of Progress Note: 05/26/2024 Chief Complaint: Acute kidney injury. History Of Present Illness: The patient is a 54-year-old man with negative past medical history. He denies history of diabetes. Denies hypertension. Denies previous history of prostate problems, kidney stones, and urinary tract infection. He came to the hospital because of abdominal pain and was evaluated by Surgery. He was found to have strangulated hernia and had surgery done during this admission. Nephrology consultation was requested for acute kidney injury. CT scan was done without contrast during this hospitalization and did not show obstructive uropathy. The patient is tolerating IV fluids and completed IV fluids. Renal function has improved. He had 1 dose of Lasix for volume overload. Review of Systems: Denies chest pain, palpitations. Physical Examination: Lungs: Clear to auscultation bilaterally. Heart: S1, S2. Abdomen: Soft. Extremities: No edema. Impression And Plan: 1. Acute kidney injury secondary to prerenal azotemia, nonoliguric, acute tubular necrosis superimposed with nonsteroidal anti-inflammatory medication affect. He will continue p.o. hydration. He completed IV fluids and renal function improved. 2. Hyponatremia. IV fluids were adjusted to prevent over-correction. The patient responded to current treatment. 3. Hypokalemia. Supplementation was added. Monitor magnesium level and phosphorus level. 4. Elevated BUN and creatinine ratio secondary to acute kidney injury. BUN was 105, creatinine 2.2. IV fluids were started for the hypovolemia and acute kidney injury. Monitor renal panel and monitor urine output. 5. Severe contraction alkalosis due to hypovolemia. Hydration was started wiyh IV fluids and acid base disorder and electrolytes abnormalities are stabilizing. EB/MODL Voice ID: [id number] Report ID: [id number] DAVONTE
[2024-05-27 06:09] LABS: Albumin 1.9 g/dL (3.4-5.0); Albumin/Globulin Ratio 0.5 (1.1-1.8); Anion Gap 8.2 mEq/L (5.0-15.0); Bilirubin Total 0.6 mg/dL (0.2-1.0); Globulin 3.5 g/dL (2.3-3.5); Magnesium 1.8 mg/dL (1.6-2.4); Phosphorus 2.6 mg/dL (2.5-4.9); Potassium 4.2 mEq/L (3.5-5.1); Protein, Total 5.4 g/dL (6.4-8.2)
[2024-05-27] MEDS ORDERED: HYDROMORPHONE HCL 1 MG/ML INJ IV PRN (07:03)
[2024-05-27 08:25] LABS: Absolute Basophils 0.2 K/uL (0-0.5); Absolute Eosinophils 0.2 K/uL (0-0.5); Absolute Lymphocytes (CBC) 2.3 K/uL (0.7-4.9); Absolute Monocytes 1.3 K/uL (0.1-1.3); Absolute Neutrophil 12.1 K/uL (1.8-8.0); Basophils % 1.2 % (0-1.3); Eosinophils % 1.3 % (0-4.4); Hematocrit 34.8 % (39.6-49.0); Hemoglobin 11.8 g/dL (13.6-17.9); Lymphocytes % 14.2 % (15.3-44.8); MCH 29.1 pg (27.0-35.0); MCHC 33.7 g/dL (32.0-36.0); MCV 86.2 fL (80-100); MPV 8.2 fL (7.6-11.3); Neutrophils % 75.3 % (41.7-73.7); Platelets 411 thou/uL (152-406); RBC Red Blood Cell Count 4.04 M/uL (4.33-5.43); Red Cell Distribution Width 14.7 % (12.1-15.2)
[2024-05-27] MEDS: MORPHINE 2 MG/ML SYR IV PRN (10:37)
[2024-05-27] MEDS: SILVER SULFADIAZINE 1% 25 GM TOP SCH (11:22)
[2024-05-27] MEDS: MAGNESIUM SULFATE 1 gm IVPB 1 GM/100 ML BAG IV ONE (13:08)
--- NOTE | 2024-05-27 15:35 | PN ---
Subjective: Patient lying in bed. No complaints except abdominal discomfort. No nausea, vomiting, diarrhea, or constipation. Able to tolerate antibiotic without any problems. Able to eat and have b een able to pass gas and have bowel movements without any problems. Objective: Vital Signs: Temperature 98, pulse 70, respirations 14, blood pressure 128/73. Lungs: Clear to auscultation. Heart: S1, S2. Regular. Abdomen: Soft. Bowel sounds present. Surgical site noted. VANNA drain site noted. [place] are in pl holden. No signs of active infection at the site of surgical wound. Extremities: No edema. Laboratory Data: Shows WBC 16,000 down from 18,000 yesterday, hemoglobin 11.8, platelets are 411. C hemistry shows BUN of 15, creatinine 0.8. Cultures are growing Paraclostridium bifermentans, anaerob ic and gram-positive rods. The patient is currently on Zosyn and vancomycin. We will continue current treatment. Consider gett ing a PICC line. Assessment And Plan: Status post surgical removal of necrotic bowel from herniated umbilical hernia. The patient is doing well. Recommend to apply Silvadene to the surgical site and keep it covered w ith surgical dressing. Leukocytosis. Anemia of chronic disease. Continue current treatment for at least 14-21 days. We will follow the patient as needed. NF/MODL Voice ID: [id number] Report ID: [id number]
--- NOTE | 2024-05-27 16:47 | PN ---
Date of Progress Note: 05/27/2024 Diagnosis: Status post strangulated intestine, status post resection. Subjective: Doing well. Tolerating diet. No nausea. No vomiting. Objective: Chest: Clear. Abdomen: Soft and depressible. Extremities: Good capillary refill. Laboratory Data: The WBC count is coming down from 18 [address] Flores's input on the change of antibiotics and follow up on the cultures. CAT sca n was done yesterday. It shows no fluid collections just postoperative changes. The VANNA drain is int act with serosanguineous. No purulent discharge or bleeding. Plan: Continue with diet. Continue medical service for the bacteremia and then we will take care of the antibiotics treatment. When he gets discharged, we will like to see the patient in a week in ou r office. YESENIA/BRAN Voice ID: [id number] Report ID: [id number]
--- NOTE | 2024-05-27 18:31 | PN ---
Date of Progress Note: 05/27/2024 Subjective: The patient was admitted to the hospital with strangulated hernia, status post surgery w ith colostomy. The patient had acute kidney injury secondary to prerenal. The patient is treated, h ydrated. Kidney function normalized. Physical Examination: Vital Signs: Blood pressure 116/67, pulse of 72. Chest: Clear to auscultation. Heart: S1, S2 regular. Abdomen: Soft, nontender. Extremities: No edema. Neurologic: Alert. No focality. Laboratory Data: Hemoglobin 11.8. Sodium 135, potassium 4.2, bicarb 27, BUN 15, creatinine 0.8 calc ium 7.9. Phosphorus 2.6, magnesium 1.8. Albumin 1.9. Corrected calcium is 9.5. Current Medications: The patient is on include Zosyn, vancomycin, Zofran, IV fluid, thiamine. Assessment And Plan: 1.Acute kidney injury secondary to prerenal, normal volume. I am going to go ahead and discontinue IV fluid. 2.Hypertension, controlled, optimal. Continue current treatment. 3.Hypermagnesemia, status post treatment, recovered, resolved. 4.Strangulated hernia. MA/MODL Voice ID: [id number] Report ID: [id number]
--- NOTE | 2024-05-27 20:48 | P.PN ---
Date of Service: 05/27/24 Subjective Patient doing much better; ID wanted to add Vancomycin; DC held, pt eating, passing gas, no c/o. Physical Examination - Vital Signs Reviewed - Physical Exam General: Alert, In no apparent distress, Oriented x3; HEENT: WNL Respiratory: Clear to auscultation bilaterally, Normal air movement Cardiovascular: Regular rate/rhythm, Normal S1 S2, No murmurs Gastrointestinal: active, No rebound, No guarding, appropriately tender; no rebound or guarding, VANNA drain with scant serosan dc Musculoskeletal: No clubbing, No swelling, No tenderness Integumentary: No rashes Neurological: No focal deficits Assessment & Plan - Problems (Diagnosis) (1) Strangulated umbilical hernia Current Visit: Yes Status: Acute (2) Peritonitis Current Visit: Yes Status: Acute (3) JUAN ANTONIO (acute kidney injury) Current Visit: Yes Status: Acute (4) Lactic acidosis Current Visit: Yes Status: Acute (5) Severe sepsis Current Visit: Yes Status: Acute - Plan Plan: Continue with plan of care as mentioned below: 1. Patient with strangulated umbilical hernia with peritonitis status post small bowel resection with anastomosis; Tolerating diet and ambulating and moving his bowels; afebrile. Vancomycin added for WBC ct increase; could be reactive. there was initially a +blood cx. Will repeat and make sure no bacteremia, then will request PICC if ID wants to continue vancomycin and zosyn 2. Acute kidney injury; renal function has improved. Continue with monitoring I's and O's and encouraging oral intake. IVF discontinued per Nephrology 3. Lactic acidosis; normalized. Continue monitoring lactic acid. Much better. 4. DVT prophylaxis Discharge Plan: Home Plan to discharge in: 24-48hrs - Advance Directives Does patient have a Living Will: No Does patient have a Durable POA for Healthcare: No - Code Status/Comfort Care Code Status: Full Code Critical Care: Yes <Rosi Moy - Last Filed: 05/27/24 20:48> This is 54 years old gentleman with no past medical history who came in with abdominal pain and found to have complicated small bowel obstruction and peritonitis related to strangulated umbilical hernia, his blood culture from emergency room positive for para Clostridium, 1 out of 2, he was started on br oad-spectrum antibiotics with Zosyn, underwent resection of small bowel and end to end anastomosis, in operative finding, there was a gangrenous small bowel obstruction. He made a very good postoperative recovery, no sign of residual peritonitis or sepsis, he was tolerating oral diet very well without any nausea and vomiting abdominal pain, his bowel motility returned and had a normal bowel movement without any clinical sign of bowel obstruction. Follow-up blood culture x 2 was negative to date. However patient has a persistent leukocytosis of 15K, but remain afebrile, ID specialist recommended continue on IV vancomycin and Zosyn, that also required a central line insertion at the time of discharge. I respectively disagree with ID recommendation, because his source of infection had been educated controlled, there has been no sign of residual infection during postoperative course. Therefore long-term antibiotic with central line is not indicated, it could cause more harm than good in my medical opinion. I determined patient can be discharged with oral antibiotics, Augmentin 825/125 for 7 to 10 days and follow-up with his surgeon. <AAYUSH Rosado - Last Filed: 05/29/24 06:52>
[2024-05-27 21:14] VITALS: O2SAT 97
[2024-05-28 04:47] LABS: Absolute Basophils 0.1 K/uL (0-0.5); Absolute Eosinophils 0.3 K/uL (0-0.5); Absolute Lymphocytes (CBC) 2.7 K/uL (0.7-4.9); Absolute Monocytes 1.5 K/uL (0.1-1.3); Absolute Neutrophil 9.8 K/uL (1.8-8.0); Basophils % 0.7 % (0-1.3); Hematocrit 33.7 % (39.6-49.0); Hemoglobin 11.3 g/dL (13.6-17.9); MCHC 33.6 g/dL (32.0-36.0); MCV 86.4 fL (80-100); MPV 8.7 fL (7.6-11.3); Monocytes % 10.6 % (3.3-12.3); Platelets 419 thou/uL (152-406); Red Cell Distribution Width 14.5 % (12.1-15.2)
[2024-05-28 04:49] LABS: Neutrophils % 67.7 % (41.7-73.7)
[2024-05-28 04:59] LABS: Albumin 2.1 g/dL (3.4-5.0); Albumin/Globulin Ratio 0.6 (1.1-1.8); Anion Gap 6.3 mEq/L (5.0-15.0); Bilirubin Total 0.4 mg/dL (0.2-1.0); Globulin 3.7 g/dL (2.3-3.5); Potassium 4.3 mEq/L (3.5-5.1); Protein, Total 5.8 g/dL (6.4-8.2)
--- NOTE | 2024-05-28 09:55 | P.PN ---
Date of Service: 05/28/24 Subjective Patient doing much better; ID wanted to add Vancomycin; DC held, pt eating, passing gas, no c/o. 05/28/24 pt is vastly improved, no bacterial growth in BC x 2 delayed sets. Will discuss downgrading abx therapy to po monotherapy with ID Physical Examination - Vital Signs Reviewed - Physical Exam General: Alert, In no apparent distress, Oriented x3; HEENT: WNL Respiratory: Clear to auscultation bilaterally, Normal air movement Cardiovascular: Regular rate/rhythm, Normal S1 S2, No murmurs Gastrointestinal: active, No rebound, No guarding, appropriately tender; no rebound or guarding, VANNA drain with scant serosang dc Musculoskeletal: No clubbing, No swelling, No tenderness Integumentary: No rashes Neurological: No focal deficits Assessment & Plan - Problems (Diagnosis) (1) Strangulated umbilical hernia Current Visit: Yes Status: Acute (2) Peritonitis Current Visit: Yes Status: Acute (3) JUAN ANTONIO (acute kidney injury) Current Visit: Yes Status: Acute (4) Lactic acidosis Current Visit: Yes Status: Acute (5) Severe sepsis Current Visit: Yes Status: Acute - Plan Plan: Continue with plan of care as mentioned below: 1. Patient with strangulated umbilical hernia with peritonitis status post small bowel resection with anastomosis; Tolerating diet and ambulating and moving his bowels; afebrile. Vancomycin added for WBC ct increase; could be reactive. there was initially a +blood cx. Will repeat and make sure no bacteremia, then will request PICC if ID wants to continue vancomycin and zosyn. 05/28/24 WBC trending down, no bacteremia, second normal set of blood cultures resulted. will discuss downgrading abx therapy with ID as pt is clinically improved and without s/s of sepsis/systemic disease. 2. Acute kidney injury; renal function has improved. Continue with monitoring I's and O's and encouraging oral intake. IVF discontinued per Nephrology 3. Lactic acidosis; normalized. Continue monitoring lactic acid. Much better. 4. DVT prophylaxis Discharge Plan: Home Plan to discharge in: 24hr - Advance Directives Does patient have a Living Will: No Does patient have a Durable POA for Healthcare: No - Code Status/Comfort Care Code Status: Full Code Critical Care: Yes
--- NOTE | 2024-05-28 11:55 | P.DS ---
Admission Date: 05/20/24 Discharge Date: 05/28/24 Reason for Admission: Incarcerated umbilical hernia; hematoma to the umbilicus; Consultations: Dr. Womack, Dr. Flores, Dr. Anne Brief History of Present Illness: Patient is a 54-year-old gentleman who came to the hospital with incarcerated umbilical hernia. Patient had peritoneal signs and had bruising around the umbilicus. Patient was transferred from an outside hospital as they were unable to transfer him to another facility because of the weather. Dr. Womack accepted the patient on transfer and patient came into the OR. Patient is doing well hemodynamically. Patient does not have any medical issues. Patient has the incarcerated umbilical hernia that has probably been present for the last 24 to 48 hours. Concern is that patient has ischemic bowel and patient will have to get a bowel resection. Patient is n.p.o. at this time. Hospital Course: Mr. Newsome did indeed have a necrotic portion of his bowel and it was removed per Dr. Womack. A VANNA drain was left in place. It has been draining scant amounts of serosanguineous discharge with no exudate. Mr. Newsome was placed on Zosyn x 8 days and clinically was improving without difficulty. The JUAN ANTONIO he presented with resolved with IV fluid, he tolerated advancing diet, reported less pain, and was afebrile. Blood cultures on the revealed 1 of 2 bottles with anaerobic bacteria. A second blood culture set was drawn on the that showed no bacterial growth. Zosyn was continued but over the course of 5 days, his white count did increase steadily and the severity of his initial bowel necrosis was w orrisome. Blood cultures were redrawn on the and vancomycin was started per ID. Clinically patient continued to improve and the blood culture results were negative for any bacterial growth. Mr. Newsome is appropriate for discharge at this time and a discussion about outpatient antibiotics took place between the Pharm.D. and ID. They recommend Augmentin 875 mg p.o. twice daily x 21 days. In discussion with my attending, Mr. Newsome shows no signs of sepsis, he has no bacteremia, and procalcitonin drawn 05/27/2024 was less than 0.05 and showed very low likelihood of sepsis. We will discharge Mr. Newsome on Augmentin 875 mg p.o. twice daily x 5 days and he will follow-up with his surgeon closely. <Rosi Moy - Last Filed: 05/28/24 12:20> Admission Date: 05/20/24 Discharge Date: 05/29/24 Hospital Course: This is 48 years old gentleman with no past medical history who came in with abdominal pain and found to have complicated small bowel obstruction and peritonitis related to strangulated umbilical hernia, his blood culture from emergency room positive for para Clostridium, 1 out of 2, he was started on broad-spectrum antibiotics with Zosyn, underwent resection of small bowel and end to end anastomosis, in operative finding, there was a gangrenous small bowel obstruction. He made a very good postoperative recovery, no sign of residual peritonitis or sepsis, he was tolerating oral diet very well without any nausea and vomiting abdominal pain, his bowel motility returned and had a normal bowel movement without any clinical sign of bowel obstruction. Follow-up blood culture x 2 was negative to date. However patient has a persistent leukocytosis of 15K, but remain afebrile and procalcitonin level less than 0.5, persistent and leukocytosis can be contributed to reactive to extensive intra- abdominal surgery. ID specialist recommended continue on IV vancomycin and Zosyn, that also required a central line insertion at the time of discharge. I respectively disagree with ID recommendation, because his source of infection had been educated controlled, there has been no sign of residual infection during postoperative course. Therefore long-term antibiotic with central line is not indicated, it could cause more harm than good in my medical opinion. I determined patient can be discharged with oral antibiotics, Augmentin 825/125 for 7 to 10 days and follow-up with his surgeon. <AAYUSH Rosado - Last Filed: 05/29/24 06:55> Disposition: ROUTINE DISCHARGE Discharge Condition: GOOD Vital Signs/Physical Exam: Temp Pulse Resp BP Pulse Ox 97.8 F 62 17 146/77 H 97 05/28/24 08:00 05/28/24 08:00 05/28/24 10:12 05/28/24 08:00 05/28/24 10:12 General: Alert, In no apparent distress, Oriented x3 HEENT: Atraumatic, Normocephalic Neck: Supple Respiratory: Clear to auscultation bilaterally, Normal air movement Cardiovascular: Normal pulses, Regular rate/rhythm Capillary refill: <2 Seconds Gastrointestinal: Normal bowel sounds, Soft and benign, No tenderness, Other (VANNA drain with scant (20 to 25 mL over 48 hours) serosanguineous discharge, no exudate) Musculoskeletal: No clubbing, No swelling Integumentary: No rashes, No breakdown Neurological: Normal speech, Normal tone, Normal affect Lymphatics: No axilla or inguinal lymphadenopathy External genitalia: Deferred Rectal: Deferred Laboratory Data at Discharge: WBC 14.50 thou/uL (4.3-10.9) H 05/28/24 03:57 Hgb 11.3 g/dL (13.6-17.9) L 05/28/24 03:57 Hct 33.7 % (39.6-49.0) L 05/28/24 03:57 Plt Count 419 thou/uL (152-406) H 05/28/24 03:57 PT 12.2 SECONDS (9.4-12.5) 05/21/24 05:49 INR 1.16 05/21/24 05:49 APTT 22.9 SECONDS (24.3-36.9) L 05/21/24 05:49 Sodium 136 mEq/L (136-145) 05/28/24 03:57 Potassium 4.3 mEq/L (3.5-5.1) 05/28/24 03:57 BUN 16 mg/dL (7-18) 05/28/24 03:57 Creatinine 0.84 mg/dL (0.70-1.30) 05/28/24 03:57 Glucose 133 mg/dL (74-106) H 05/28/24 03:57 Phosphorus 2.6 mg/dL (2.5-4.9) 05/27/24 05:22 Magnesium 1.8 mg/dL (1.6-2.4) 05/27/24 08:16 Total Bilirubin 0.4 mg/dL (0.2-1.0) 05/28/24 03:57 AST 47 U/L (15-37) H 05/28/24 03:57 ALT 74 U/L (16-61) H 05/28/24 03:57 Alkaline Phosphatase 236 U/L (45-117) H 05/28/24 03:57 <Moy,Rosi Seferino - Last Filed: 05/28/24 12:20> Vital Signs/Physical Exam: Temp Pulse Resp BP Pulse Ox 98.4 F 72 17 139/74 97 05/28/24 12:00 05/28/24 12:00 05/28/24 13:02 05/28/24 12:00 05/28/24 13:02 Laboratory Data at Discharge: WBC 14.50 thou/uL (4.3-10.9) H 05/28/24 03:57 Hgb 11.3 g/dL (13.6-17.9) L 05/28/24 03:57 Hct 33.7 % (39.6-49.0) L 05/28/24 03:57 Plt Count 419 thou/uL (152-406) H 05/28/24 03:57 PT 12.2 SECONDS (9.4-12.5) 05/21/24 05:49 INR 1.16 05/21/24 05:49 APTT 22.9 SECONDS (24.3-36.9) L 05/21/24 05:49 Sodium 136 mEq/L (136-145) 05/28/24 03:57 Potassium 4.3 mEq/L (3.5-5.1) 05/28/24 03:57 BUN 16 mg/dL (7-18) 05/28/24 03:57 Creatinine 0.84 mg/dL (0.70-1.30) 05/28/24 03:57 Glucose 133 mg/dL (74-106) H 05/28/24 03:57 Phosphorus 2.6 mg/dL (2.5-4.9) 05/27/24 05:22 Magnesium 1.8 mg/dL (1.6-2.4) 05/27/24 08:16 Total Bilirubin 0.4 mg/dL (0.2-1.0) 05/28/24 03:57 AST 47 U/L (15-37) H 05/28/24 03:57 ALT 74 U/L (16-61) H 05/28/24 03:57 Alkaline Phosphatase 236 U/L (45-117) H 05/28/24 03:57 <AAYUSH Rosado Ran - Last Filed: 05/29/24 06:55> Diet: AHA Activity: Fall precautions <Moy,Rosi Seferino - Last Filed: 05/28/24 12:20> <AAYUSH Rosado Ran - Last Filed: 05/29/24 06:55> Home Medications: Amox/Clavulanate [Augmentin 875-125 Tab*] 875 mg PO BIDWM #10 tab 05/28/24 Ensure High Protein 237 ml PO BID #24 can 05/28/24 Hydrocodone 5/APAP 325 [[place] 5/325] 1 tab PO Q6H PRN #24 tab 05/28/24 L.acidop/L.soledad/B.bifid/B.long [Kro Probiotic Colon Support] 70 mg PO BID #2 box 05/28/24 Silver Sulfadiazine [Silvadene 1% Cream] 1 appl TOP BID #1 tube 05/28/24 New Medications: Amox/Clavulanate [Augmentin 875-125 Tab*] 875 mg PO BIDWM #10 tab Ensure High Protein 237 ml PO BID #24 can L.acidop/L.soledad/B.bifid/B.long [Kro Probiotic Colon Support] 70 mg PO BID #2 box Hydrocodone 5/APAP 325 [[place] 5/325] 1 tab PO Q6H PRN #24 tab PRN Reason: Pain Silver Sulfadiazine [Silvadene 1% Cream] 1 appl TOP BID #1 tube Physician Discharge Instructions: Brief History of Present Illness: Patient is a 54-year-old gentleman who came to the hospital with incarcerated umbilical hernia. Patient had peritoneal signs and had bruising around the umbilicus. Patient was transferred from an outside hospital as they were unable to transfer him to another facility because of the weather. Dr. Womack accep tanner the patient on transfer and patient came into the OR. Patient is doing well hemodynamically. Patient does not have any medical issues. Patient has the incarcerated umbilical hernia that has probably been present for the last 24 to 48 hours. Concern is that patient has ischemic bowel and patient will have to get a bowel resection. Patient is n.p.o. at this time. Hospital Course: Mr. Newsome did indeed have a necrotic portion of his bowel and it was removed per Dr. Womack. A VANNA drain was left in place. It has been draining scant amounts of serosanguineous discharge with no exudate. Mr. Newsome was placed on Zosyn x 8 days and clinically was improving without difficulty. The JUAN ANTONIO he presented with resolved with IV fluid, he tolerated advancing diet, reported less pain, and was afebrile. Blood cultures on the revealed 1 of 2 bottles with anaerobic bacteria. A second blood culture set was drawn on the that showed no bacterial growth. Zosyn was continued but over the course of 5 days, his white count did increase steadily and the severity of his initial bowel necrosis was worrisome. Blood cultures were redrawn on the and vancomycin was started per ID. Clinically patient continued to improve and the blood culture results were negative for any bacterial growth. Mr. Newsome is appropriate for discharge at this time and a discussion about outpatient antibiotics took place between the Pharm.D. and ID. They recommend Augmentin 875 mg p.o. twice daily x 21 days. In discussion with my attending, Mr. Newsome shows no signs of sepsis, he flores s no bacteremia, and procalcitonin drawn 05/27/2024 was less than 0.05 and showed very low likelihood of sepsis. We will discharge Mr. Newsome on Augmentin 875 mg p.o. twice daily x 5 days and he will follow-up with his surgeon closely. -DC IV and DC home -Follow-up with PCP in 1 to 2 weeks -Follow-up with surgery, Dr. Womack in 1 to 2 weeks -Please call Dr. Thornton at [phone] if any questions regarding hospital stay -Please call nursing station at [phone] if any nursing or medication questions -Return to the emergency room if symptoms worsen Followup: Geoffrey Womack MD [ACTIVE - CAN ADMIT] - 1-2 Weeks
[2024-05-28 15:18] VITALS: BP 139/74; TEMP 98.4
[2024-05-28] MEDS: AMOX/K CLAV 875 MG TAB PO SCH (16:44)
--- NOTE | 2024-05-28 17:33 | PN ---
Date of Progress Note: 05/28/2024 Subjective: The patient was admitted to the hospital with strangulating hernia. The patient had acu te kidney injury secondary to toxic ATN. After hydration, kidney function normalized. The patient h ad hypermagnesemia resolved. Physical Examination: Vital Signs: Blood pressure of 146/77, pulse of 62. Chest: Clear to auscultation. Heart: S1, S2 regular. Abdomen: Soft, nontender. Colostomy. Extremities: No edema. Neurologic: Alert. No focality. Laboratory Data: Hemoglobin 11.3. Sodium 136, potassium 4.3, bicarb 29, BUN 16, creatinine 0.8, tiera cium 7.9. Current Medications: The patient is on include Lovenox, Zosyn, magnesium oxide. Assessment And Plan: 1. Acute kidney injury secondary to prerenal, recovered, resolved. 2. Hypertension, controlled, optimal. 3. Hypermagnesemia, resolved. The patient cleared from the Renal standpoint for discharge planning. RAVI Voice ID: [id number] Report ID: [id number]
[2024-05-28] MEDS ORDERED: LACTOBACILLUS/ACIDOPHILUS TAB PO SCH (21:00)
== END 2024-05-28 17:43 | disposition home or self-care (01) | DRG 853 ==
LOC: 3RD-ICU 17:41 → 2ND 05-22 20:46
PROVIDERS: ADMIT Surgery; ATTEND Internal Medicine
PROC: 0WQF0ZZ Repair Abdominal Wall, Open Approach (ICD-10-PCS; 2024-05-20)
PROC: 0DB80ZZ Excision of Small Intestine, Open Approach (ICD-10-PCS; principal; 2024-05-20 19:00)
PROC: 0DH67UZ Insertion of Feeding Device into Stomach, Via Natural or Artificial Opening (ICD-10-PCS; 2024-05-21)
DX: A41.89 Other specified sepsis (principal); K42.1 Umbilical hernia with gangrene; K65.9 Peritonitis, unspecified; N17.0 Acute kidney failure with tubular necrosis; E87.20 Acidosis, unspecified; E87.1 Hypo-osmolality and hyponatremia; E87.3 Alkalosis; K55.9 Vascular disorder of intestine, unspecified; E83.41 Hypermagnesemia; E44.0 Moderate protein-calorie malnutrition; E87.6 Hypokalemia; R31.9 Hematuria, unspecified; R65.20 Severe sepsis without septic shock; Z88.6 Allergy status to analgesic agent; Z88.5 Allergy status to narcotic agent; Z68.22 Body mass index [BMI] 22.0-22.9, adult; Z87.891 Personal history of nicotine dependence
CPT/HCPCS: 36415; 74018; 74176; 80048; 80053; 80202; 81001; 82308; 83605; 83735; 83880; 84100; 84145; 85025; 85044; 85610; 85730; 86850; 86900; 86901; 87040; 87086; 87088; 87205; 88305; 88307; 94010; 97161; A4314; J0692; J1171; J1650; J1940; J2003; J2250; J2270; J2405; J2470; J2543; J2704; J2710; J2765; J3010; J3411; J3475; J3480; J7030; J7040; J7050; J7120; J7799; P9047